=== PATIENT | female | born 1950 | race Caucasian/White ===

== ENCOUNTER 2021-02-02 16:18 | Outpatient (CLI) | payer MEDICARE ==
[2021-02-02 18:27] LABS: BASOPHILS # (AUTO) 0.1 10^3/uL (0.0-0.1); BASOPHILS % (AUTO) 1.5 %; EOSINOPHILS # (AUTO) 0.3 10^3/uL (0.0-0.7); EOSINOPHILS % (AUTO) 3.2 %; HCT - HEMATOCRIT 48.5 % (37.0-47.0); HGB - HEMOGLOBIN 16.2 g/dL (12.0-16.0); LYMPHOCYTES # (AUTO) 3.5 10^3/uL (1.5-3.5); MEAN CORPUSCULAR HEMOGLOBIN 32.3 pg (27.0-31.0); MEAN CORPUSCULAR HGB CONC 33.4 g/dL (32.0-36.0); MEAN CORPUSCULAR VOLUME 96.8 fL (81.0-99.0); MEAN PLATELET VOLUME 9.9 fL (7.9-10.8); NEUTROPHILS # (AUTO) 4.5 10^3/uL (1.5-6.6); NEUTROPHILS % (AUTO) 47.4 %; PLT - PLATELET COUNT 351 10^3/uL (130-450); RED BLOOD COUNT 5.01 10^6/uL (4.20-5.40); RED CELL DISTRIBUTION WIDTH 13.8 % (12.0-15.0); WHITE BLOOD COUNT 9.5 x10^3/uL (4.8-10.8)
[2021-02-02 18:49] LABS: ALBUMIN 4.8 g/dL (3.2-5.5); ALBUMIN/GLOBULIN RATIO 1.5 (1.0-2.2); ALKALINE PHOSPHATASE 66 IU/L (42-121); ALT ALANINE AMINOTRANSFERASE 22 IU/L (10-60); AST ASPARTATE AMINOTRANSFERASE 24 IU/L (10-42); BILIRUBIN,TOTAL 0.7 mg/dL (0.2-1.0); BUN - BLOOD UREA NITROGEN 15 mg/dL (6-20); CARBON DIOXIDE - CO2 25 mmol/L (21-32); CHLORIDE 104 mmol/L (101-111); CHOL/HDL RATIO 4.1 (<4.4); CHOLESTEROL 191 mg/dL; CREATININE 0.9 mg/dL (0.4-1.0); GFR - MDRD 62 (>89); GLUCOSE 94 mg/dL (70-100); HDL CHOLESTEROL 47 mg/dL; LDL CHOLESTEROL,CALCULATED 116 mg/dL; LDL/HDL RATIO 2.5 (<4.4); POTASSIUM 3.7 mmol/L (3.5-5.0); SODIUM 139 mmol/L (135-145); TOTAL PROTEIN 7.9 g/dL (6.7-8.2); TRIGLYCERIDES 142 mg/dL; VLDL CHOLESTEROL 28 mg/dL
[2021-02-02 18:52] LABS: THYROID STIMULATING HORMONE 2.01 uIU/mL (0.34-5.60)
== END 2021-02-02 23:59 | disposition home or self-care (01) ==
LOC: LAB.WCP 16:18
PROVIDERS: ATTEND Family Medicine
DX: I10 Essential (primary) hypertension (principal); E78.5 Hyperlipidemia, unspecified
CPT/HCPCS: 36415; 80053; 80061; 83721; 84443; 85025

== ENCOUNTER 2021-08-24 12:00 | Outpatient (CLI) | payer MEDICARE ==
--- NOTE | 2021-08-25 08:30 | XRAY Report ---
PROCEDURE: Knee 3 View LT INDICATIONS: OSTEOARTHRITIS OF L KNEE TECHNIQUE: 3 views of the left knee(s) were acquired. COMPARISON: None. FINDINGS: Bones: No acute fractures or dislocations. Moderate-severe tricompartmental degenerative changes of the left knee with significant joint space narrowing of the medial femorotibial compartment on weight bearing views. Prominent marginal osteophytes. No suspicious bony lesions. Soft tissues: No substantial joint effusion. No suspicious soft tissue calcifications. IMPRESSION: Moderate-severe tricompartmental osteoarthritis of the left knee most severe in the medi al femorotibial compartment. Reviewed by: Enrique Nam MD on 08/25/2021 8:28 AM PDT Approved by: Enrique Nam MD on 08/25/2021 8:28 AM PDT Station ID: [id number]
== END 2021-08-24 12:01 ==
LOC: DI.N 12:00
PROVIDERS: ATTEND Physician Assistant Medical
DX: M17.12 Unilateral primary osteoarthritis, left knee (principal)

== ENCOUNTER 2021-12-03 07:42 | Outpatient (CLI) | payer MEDICARE ==
[2021-12-03 11:57] LABS: BASOPHILS # (AUTO) 0.1 10^3/uL (0.0-0.1); BASOPHILS % (AUTO) 1.6 %; EOSINOPHILS # (AUTO) 0.4 10^3/uL (0.0-0.7); EOSINOPHILS % (AUTO) 4.7 %; HCT - HEMATOCRIT 46.2 % (37.0-47.0); HGB - HEMOGLOBIN 15.6 g/dL (12.0-16.0); LYMPHOCYTES # (AUTO) 3.6 10^3/uL (1.5-3.5); LYMPHOCYTES % (AUTO) 41.5 %; MEAN CORPUSCULAR HEMOGLOBIN 32.6 pg (27.0-31.0); MEAN CORPUSCULAR HGB CONC 33.8 g/dL (32.0-36.0); MEAN CORPUSCULAR VOLUME 96.7 fL (81.0-99.0); MEAN PLATELET VOLUME 9.7 fL (7.9-10.8); MONOCYTES # (AUTO) 0.8 10^3/uL (0.0-1.0); MONOCYTES % (AUTO) 9.3 %; NEUTROPHILS # (AUTO) 3.7 10^3/uL (1.5-6.6); NEUTROPHILS % (AUTO) 42.3 %; PLT - PLATELET COUNT 363 10^3/uL (130-450); RED BLOOD COUNT 4.78 10^6/uL (4.20-5.40); RED CELL DISTRIBUTION WIDTH 13.3 % (12.0-15.0); WHITE BLOOD COUNT 8.7 x10^3/uL (4.8-10.8)
[2021-12-03 12:24] LABS: ALBUMIN 4.4 g/dL (3.2-5.5); ALBUMIN/GLOBULIN RATIO 1.5 (1.0-2.2); ALKALINE PHOSPHATASE 59 IU/L (42-121); ALT ALANINE AMINOTRANSFERASE 17 IU/L (10-60); AST ASPARTATE AMINOTRANSFERASE 21 IU/L (10-42); BILIRUBIN,TOTAL 0.7 mg/dL (0.2-1.0); BUN - BLOOD UREA NITROGEN 15 mg/dL (6-20); CALCIUM 9.3 mg/dL (8.5-10.3); CARBON DIOXIDE - CO2 25 mmol/L (21-32); CHLORIDE 104 mmol/L (101-111); CHOLESTEROL 238 mg/dL; CREATININE 0.7 mg/dL (0.4-1.0); GFR - MDRD 83 (>89); GLUCOSE 86 mg/dL (70-100); HDL CHOLESTEROL 48 mg/dL; LDL CHOLESTEROL,CALCULATED 166 mg/dL; LDL/HDL RATIO 3.5 (<4.4); POTASSIUM 3.9 mmol/L (3.5-5.0); SODIUM 138 mmol/L (135-145); TOTAL PROTEIN 7.4 g/dL (6.7-8.2); TRIGLYCERIDES 119 mg/dL; VLDL CHOLESTEROL 24 mg/dL
== END 2021-12-03 23:59 | disposition home or self-care (01) ==
LOC: LAB.WCP 07:42
PROVIDERS: ATTEND Family Medicine
DX: I10 Essential (primary) hypertension (principal); E78.5 Hyperlipidemia, unspecified
CPT/HCPCS: 36415; 80053; 80061; 83721; 85025

== ENCOUNTER 2022-04-17 23:15 | Outpatient (CLI) | payer MEDICARE | END 2022-04-17 23:16 | disposition critical access hospital (66) | LOC: EMS 23:15 | DX: S01.21XA Laceration without foreign body of nose, initial encounter (principal); W18.39XA Other fall on same level, initial encounter; Y92.009 Unspecified place in unspecified non-institutional (private) residence as the place of occurrence of the external cause | CPT/HCPCS: A0425; A0429 ==

== ENCOUNTER 2022-04-17 23:27 | Emergency (ER) | payer MEDICARE ==
--- NOTE | 2022-04-18 03:28 | ED Physician Documentation ---
PD HPI HEAD INJURY - Stated complaint Stated Complaint: ETOH/NOSE LAC - Chief complaint Chief Complaint: Trauma Hd/Nk - History obtained from History obtained from: Patient - History of Present Illness Mechanism of head injury: Fell Where head injury occurred: Home Pain level now: 2 Location of injury: Front Associated symptoms: Neck pain. No: LOC, AMS, Nausea / vomiting Symptoms improve with: Other Contributing factors: No: Anticoagulated Recently seen: Not recently seen - Additional information Additional information: patient was trying to retrieve her cat when she fell off side of her deck, which is just a few inches lower than the surface she was on.Struck head on ground, tello staining nasal laceratoion. Denies LOC. Uncertain when last tetanus shot was. Review of Systems Eyes: reports: Reviewed and negative Cardiac: reports: Reviewed and negative Respiratory: reports: Reviewed and negative GI: reports: Reviewed and negative PD PAST MEDICAL HISTORY - Past Medical History Past Medical History: Yes - Allergies Allergies/Adverse Reactions: Allergies Allergy/AdvReac Type Severity Reaction Status Date / Time Sulfa (Sulfonamide Allergy Unknown Verified 04/18/22 01:11 Antibiotics) contrast media Allergy Unknown Uncoded 04/18/22 01:12 PD ED PE NORMAL - Vitals Vital signs reviewed: Yes - General General: Alert and oriented X 3, No acute distress, Well developed/nourished - HEENT HEENT: Moist mucous membranes, Pharynx benign - Neck Neck: Supple, no meningeal sign, No bony TTP - Cardiac Cardiac: RRR - Respiratory Respiratory: No respiratory distress, Clear bilaterally - Abdomen Abdomen: Soft, Non tender PD ED PE EXPANDED - HEENT HEENT Visual: 1 - swelling, tenderness 2 - laceration (1 cm) Results - Vitals Vitals: Oxygen O2 Source Room air - Rads (name of study) CT head Radiology: Prelim report reviewed, See rad report CT cervical spine Radiology: Prelim report reviewed, See rad report CT facial bones Radiology: Prelim report reviewed, See rad report Procedures - Laceration (location) Nose Length in cm: 1 Wound type: Linear, Clean Skin layer closure: Dermabond Other: Patient tolerated well, No complications, Tetanus UTD PD MEDICAL DECISION MAKING - ED course Complexity details: considered differential, d/w patient Departure - Departure Disposition: 01 Home, Self Care Clinical Impression: Fracture of nasal bone Qualifiers: Encounter type: initial encounter Fracture type: closed Qualified Code(s): S02.2XXA - Fracture of nasal bones, initial encounter for closed fracture Condition: Good Instructions: ED Fx Nose W Lac Skin Glue Comments: Your CT scans show a nasal fracture ("broken nose"). Follow up with your primary care provider in 5-7 days for reevaluation. Forms: Activity restrictions Discharge Date/Time: 04/18/22 07:44
[2022-04-18] MEDS ORDERED: TETANUS/DIPHTHERIA/PERTUSSIS 0.5 ML SYRINGE IM ONE (07:19)
--- NOTE | 2022-04-18 07:30 | CT Report ---
PROCEDURE: CT brain without contrast INDICATIONS: fall, head injury TECHNIQUE: Noncontrast 4.5 mm thick angled axial sections acquired from the foramen magnum to the vertex. For r adiation dose reduction, the following was used: automated exposure control, adjustment of mA and/or kV according to patient size. COMPARISON: None. FINDINGS: Image quality: Excellent. CSF spaces: Basal cisterns are patent. No extra-axial fluid collections. Ventricles are normal in size and shape. Brain: No midline shift. No intracranial masses or hemorrhage. Barragan-white matter interface is norm al. Calcified left foraminal extra-axial meningioma measures 2.1 x 1.3 cm. Smaller extra-axial calci fication right frontal also probably reflects meningioma. No significant mass effect. Moderate atroph y and multifocal white matter chronic ischemic change noted. Atherosclerotic vascular calcification n oted in the cavernous segments of both internal carotid arteries as well as the intradural vertebral arteries. Skull and face: Calvarium and visualized facial bones are intact, without suspicious lesions. Nasal bone fracture is present. Sinuses: Visualized sinuses and mastoids are clear. IMPRESSION: 1. Comminuted nasal bone fracture 2. Calcified frontal meningiomas 3. Atrophy and chronic ischemic change without intracranial hemorrhage or mass effect Note: Final report is concordant with preliminary report provided by [employer] Reviewed by: Jerman Chino MD on 04/18/2022 6:28 AM MELISA Approved by: Jerman Chino MD on 04/18/2022 6:28 AM MELISA Station ID: [id number]
--- NOTE | 2022-04-18 07:33 | CT Report ---
PROCEDURE: Facial CT without contrast INDICATIONS: fall, facial pain/injury TECHNIQUE: Noncontrast 1.5 mm thick axial images acquired from the mandible through the frontal sinuses, with co josefa and sagittal reformatting. For radiation dose reduction, the following was used: automated ex posure control, adjustment of mA and/or kV according to patient size. COMPARISON: None. FINDINGS: Image quality: Excellent. Bones and teeth: Comminuted nasal bone fractures appear additional fracture through the anterior esvin al septum noted. Incidental note is made of aeration of the left middle turbinate. Orbital muir are intact. Sinus muir show no fracture or deformity. Zygomatic arches are intact. Pterygoid plates are intact. Visualized portions of the skull base and auditory canals are intact. Mandible intact. Sinuses: Paranasal sinuses are aerated, without fluid levels, mucosal thickening, or mucoceles. Mas toid air cells are aerated. Soft tissues: No edema, masses, or fluid collections. No enlarged lymph nodes. No soft tissue lace rations or debris. Vascular: Visualized vascular structures appear normal in the absence of contrast. Bony vascular fo ramina and canals are intact. IMPRESSION: 1. Comminuted nasal bone fracture and anterior septal fracture Note: Final report is concordant with preliminary report provided by [email or web address] Reviewed by: Jerman Chino MD on 04/18/2022 6:31 AM MELISA Approved by: Jerman Chino MD on 04/18/2022 6:31 AM MELISA Station ID: [id number]
--- NOTE | 2022-04-18 07:36 | CT Report ---
PROCEDURE: CT cervical spine without contrast INDICATIONS: fall, head injury, intoxicated TECHNIQUE: Noncontrast 3 mm thick sections acquired from the skull base to the T4 level. Sagittal and coronal r eformats were then constructed. For radiation dose reduction, the following was used: automated exp osure control, adjustment of mA and/or kV according to patient size. COMPARISON: None. FINDINGS: Image quality: Excellent. Bones: There is straightening of the normal cervical lordosis. Grade 1 anterior spinal listhesis pres ent at C4-5. Disc space narrowing with anterior osteophytes present C4-5, C5-6 and C6-7. Hypertrophic uncovertebral joints results in foraminal stenosis in the lower cervical spine. Mild to moderate justin tral stenosis at C5-6. Craniovertebral relationships normal. Soft tissues: Prevertebral soft tissues are normal in thickness. No paravertebral hematomas. No ap ical pneumothoraces. IMPRESSION: Multilevel degenerative disc disease and arthropathy without fracture or traumatic malalignment. Note: Final report is concordant with preliminary report provided by [employer] Reviewed by: Jerman Chino MD on 04/18/2022 6:35 AM MELISA Approved by: Jerman Chino MD on 04/18/2022 6:35 AM AKBRANDI Station ID: [id number]
[2022-04-18 07:44] VITALS: BP 148/88
== END 2022-04-18 07:44 | disposition home or self-care (01) ==
LOC: EDUNIT# → ED 23:27
DX: S02.2XXA Fracture of nasal bones, initial encounter for closed fracture (principal); W17.89XA Other fall from one level to another, initial encounter; Y92.007 Garden or yard of unspecified non-institutional (private) residence as the place of occurrence of the external cause; Z23 Encounter for immunization; Z71.85 Encounter for immunization safety counseling
CPT/HCPCS: 12011; 90471; 99282; 99284

== ENCOUNTER 2022-04-21 08:00 | Outpatient (CLI) | payer MEDICARE | END 2022-04-21 23:59 | disposition home or self-care (01) | LOC: LAB.N 08:00 | PROVIDERS: ATTEND Registered Nurse | DX: U07.1 COVID-19 (principal) ==

== ENCOUNTER 2024-01-25 17:41 | Outpatient (CLI) | payer MEDICARE ==
--- NOTE | 2024-01-26 12:41 | CT Report ---
PROCEDURE: Chest WO INDICATIONS: WHEEZING, SMOKER TECHNIQUE: A CT scan of the chest was performed. Intravenous contrast media was not administered. Images were re corded and evaluated at appropriate window settings. Reformats: axial MIP of the chest, coronal and s agittal. For radiation dose reduction, the following was used: automated exposure control, adjustment of mA and/or kV according to patient size. COMPARISON: None. FINDINGS: Image quality: Diagnostic. Chest wall and lower neck: No thyroid nodule which requires sonographic follow up. Heterogeneous thyr oid. No axillary or supraclavicular adenopathy by size. Lungs and pleura: No consolidation. No pleural effusions. No pneumothorax. Mild bronchial thickening with bronchial secretions. Mild centrilobular emphysema. Multiple solid pulmonary micronodules. Exam ples include: -3 mm solid nodule, left lower lobe (series 4, image 79). -2 to 3 mm solid nodule, lateral right upper lobe (series 4, image 20). -To 3 mm solid nodule, lateral left upper lobe (series 4, image 40). Mediastinum: Heart size is normal. No pericardial effusion. No large vessel abnormality. No mediastin al adenopathy by size criteria. Moderate LAD calcifications. Bones: No aggressive osseous abnormality. Upper Abdomen: Unremarkable. IMPRESSION: Mild bronchial thickening with bronchial secretions. Findings favor infectious or inflammatory bronch iolitis, COPD exacerbation. Multiple solid pulmonary micronodules. Consider 12 month follow-up, per Fleischner Society guidelines . Heterogeneous thyroid, most consistent with thyroiditis. Reviewed by: Jeffery Jasmine MD on 01/26/2024 12:40 PM [facility] Approved by: Jeffery Jasmine MD on 01/26/2024 12:40 PM PST Station ID: [id number]
== END 2024-01-25 17:42 | disposition home or self-care (01) ==
LOC: DI 17:41
PROVIDERS: ATTEND Nurse Practitioner Family
DX: R91.8 Other nonspecific abnormal finding of lung field (principal); F17.210 Nicotine dependence, cigarettes, uncomplicated